=== PATIENT | female | born 1990 | race Caucasian/White ===

== ENCOUNTER 2024-07-25 12:21 | Outpatient (OUT) | payer OTHER, SELFPAY | END 2024-07-25 12:22 | disposition home or self-care (01) | LOC: PST 12:23 | PROVIDERS: PCP Family Medicine; Visit Provider Obstetrics & Gynecology | DX: Z01.818 Encounter for other preprocedural examination (principal) ==

== ENCOUNTER 2024-08-02 08:12 | Day surgery (SDC) | payer OTHER, SELFPAY ==
[2024-07-25 12:52] VITALS: BP 118/81; PULSE 82; TEMP 36.4; O2SAT 100; BMI 37.8
[2024-08-02] VITALS (12 sets, daily range): BP systolic 112–142; BP diastolic 70–95; PULSE 82–110; TEMP 36.2–36.3; O2SAT 90–100; BMI 38.1
[2024-08-02 08:21] LABS: Basophils Percent Auto 0.5 % (0.2-2.0); Eosinophils Absolute Auto 0.2 10^3/uL (0.0-0.7); Eosinophils Percent Auto 3.1 % (0.9-7.0); Hematocrit 41.5 % (36.0-48.0); Hemoglobin 14.3 g/dL (12.0-16.0); Immature Granulocytes Abs Auto 0.03 10^3/uL (0.00-0.03); Immature Granulocytes Pct Auto 0.5 % (0.0-0.5); Lymphocytes Absolute Auto 1.7 10^3/uL (1.2-3.8); Lymphocytes Percent Auto 26.1 % (20.5-60.0); Mean Corpuscular HGB Conc 34.5 g/dL (29.9-35.2); Mean Corpuscular Hemoglobin 28.8 pg (26.7-34.0); Mean Corpuscular Volume 83.7 fL (81.0-99.0); Mean Platelet Volume 10.1 fL (9.5-13.5); Monocytes Absolute Auto 0.5 10^3/uL (0.3-0.8); Monocytes Percent Auto 8.2 % (1.7-12.0); Neutrophils Percent Auto 61.6 % (43.0-75.0); Platelet Count 245 10^3/uL (150-450); Red Blood Count 4.96 10^6/uL (4.20-5.40); Red Cell Distribution Width 11.9 % (11.0-15.0); White Blood Count 6.5 10^3/uL (4.0-11.0)
[2024-08-02] MEDS: LACTATED RINGER'S SOLUTION 1,000 ML 50 ML IV ×2 (08:41→12:13)
[2024-08-02 09:10] LABS: HCG Quantitative <1 mIU/mL
--- NOTE | 2024-08-02 11:47 | P.ON_ITS ---
Brief Operative Note Date of procedure: 08/02/24 Pre-op diagnosis general: multiparity, desires permanent sterilization Post-op diagnosis: same as pre-op Procedure: NAME OF PROCEDURE: robotic assisted bilateral laparoscopic salpingectomy, lysis of omental adhesions from anterior abdominal wall, lt ovarian cystotomy PROCEDURE: The patient was taken back to the Operating Room where she was given general anesthesia without difficulty. She was then prepped and draped in the normal sterile fashion after being placed in a dorsal lithotomy position. A wet sponge stick was placed into the patient's vagina. Attention was then turned to the patient's abdomen, where a scalpel was used to make a small infraumbilical incision. The S retractors were then used to dissect the underlying layers until the fascia could be seen. The fascia was then grasped with Donovan clamps and tented up. A knife was then used to make a small incision to the fascia. The muscle was identified, at that time two sutures of #0 Vicryl on a GI needle was then used and placed through the fascia. the peritoneum was then identified and entered bluntly. The 10-4 Luc was then placed into the patient's abdomen. This was confirmed with direct visualization of the bowel, using the laparoscope. The patient's abdomen was then insufflated using approximately 4 liters of CO2 gas. Survey of the patient's abdomen demonstrated ovaries were normal in appearance as well as both tubes and uterus. A second and third rt and lt lateral robotic ports which were 8 mm in size, was then placed after the skin incision was made under direct visualization . the robotic arms were engaged. The patient's tube on the patient's right side was identified and tented up using a grasper, the ligasure apparatus was then used to come across the mesosalpingx from the fimbriated end to the insertion site at the uterus, the tube was then amputated and removed in its entirety. This was done on the contralateral side. The tubes were the removed from the patients abdomen. Excellent hemostasis was noted. The lateral ports were then moved under direct visualization with excellent hemostasis. All instruments were removed from the patient's abdomen. The fascia was closed using the #0 Vicryl on GI needle. The skin was closed using 4-0 Vicryl subcuticularly. All instruments were removed from the patient's vagina as well. The patient was taken out of the dorsal lithotomy position and placed in the supine position and taken to recovery in stable condition. Sponge, lap and needle counts were correct x2. please note left ovarian cystotomy and lysis of omental adhesions from anterior abdominal wall using the ligasure Surgeon: Josh Whelan Inspector Subassembly: Eugenie Fleming Estimated blood loss (mL): 5 Pathology: other (tubes) Condition: stable Disposition: PACU Urinary Catheter Management Urinary Catheter Management Urethral: Cath placed during this visit: no
--- NOTE | 2024-08-02 12:42 | PC.NURSE ---
(1230)O2 sat 88-92%. Lung sounds clear t/o a/p. O2 applied at 2l min via nc. PHARMACEUTICAL COMPOUNDING SUPERVISOR at bedside and aware.
== END 2024-08-02 14:00 | disposition home or self-care (01) ==
PROVIDERS: PCP Family Medicine; Visit Provider Obstetrics & Gynecology
PROC: (CPT 840; principal; 2024-08-02 09:30)
DX: Z30.2 Encounter for sterilization (principal)
CPT/HCPCS: 58661; 36415; 84702; 85025; 88302; J1100; J1885; J2250; J2405; J2704; J3010

== ENCOUNTER 2025-07-07 07:38 | Outpatient (OUT) | payer OTHER, SELFPAY ==
--- OUTSIDE RECORDS SUMMARY | 2025-07-06 10:45 | XMS_ITS ---
Author Organization [facility] in [place] Address [address] [place] [address] Care Team Providers Care Hydraulic Blocker Name Role Phone Mukesh Dolan Primary Care Provider Allergies No Known Allergies REASON FOR VISIT weight loss- wants to restart Adipex again- CSA signed, Had tubes taken out back in July and was taken off of control Medications Medication SIG (Take, Route, Frequency, Duration) Notes Start Date End Date Status Adipex-P 37.5 MG 1 tablet before breakfast Orall y Once a day; Duration: 30 5Active Social History Tobacco Use: Social History Observation Description Date Details (start date - stop date) Never Smoker NA - NA Tobacco Use/Smoking Question Answer Notes Patient is a nonsmoker Vital Signs Weight 191.6 lbs 07/06/2025 Height 60 in 07/06/2025 Blood pressure systolic 124 mm Hg 07/06/20 25 Blood pressure diastolic 84 mm Hg 025 BMI 37.42 kg/m2 07/06/2025 Encounters Encounter Location Date Provider Diagnosis [facility] [address] [place] [address] 07/06/2025 Mukesh Dolan Obesity E66.9 ; Well adolescent visit Z00.129 and Well adult Z00.00 Assessments Encounter Date Diagnosis (ICD Code) Assessment Notes Treatment Notes Treatment Clinical Notes Section Notes 07/06/2025 Obesity (ICD-10 - E66.9) 07/06/2025Well adolescent visit (ICD-10 - Z00.129)07/06/2025Well adult (ICD-10 - Z00.00) Plan Of Treatment Medication Medication Name Sig Start Date Stop Date Notes Adipex-P 37.5 MG 1 tablet before weston kfast Orally Once a day; Duration: 30 07/06/2025 Pending Test Test Name Order Date HEMOGLOBIN A1C (GLYCO) 07/06/2025 IRON, TOTAL 07/06/2025 LIPID PANEL (CHOL/TRIG/HDL/LDL) 07/06/20 25 Insulin Level 07/06/2025 FSH+LH+Prog+E2 07/06/2025 PROLACTIN 07/06/2025 TESTOSTERONE, TOTAL 07/06/2025 THYROID PANEL (T4/TSH/FREE T3) CMP (COMP MET FERRELL) w/eGFR CKD-EPI 2024 CBC WITH DIFF 07/06/2025 Progress Notes * Lizbeth HASTINGS RDOB: [birth year] (35 yo F)Acc No.[id number]:07/06/2025 UNLOCKED PROGRESS NOTE Progress Note Patient: Lizbeth TILLEY :?Luis Dolan ([facility]), MDDOB:1990???Age: 35 Y???Sex:FemaleDate:07/06/2025Phone:[phone]:[address], [id number] In:03:41 PM ESTCheck Out:04:10 PM EST Subjective: * Chief Complaints: * 1 . weight loss- wants to restart Adipex again- CSA signed. 2. Had tubes taken out back in July and was taken off of control. * ROS: ???EENT:?hearing changes?denies.?visual changes?denies. non-healing mouth sores?denies.?swollen glands or neck lumps?denies.?hoarseness?denies.?sore throat?denies.?difficulty swallowing?denies.?nose bleeds?denies.?nasal congestion?denies.?ear ache?denies.?ear discharge denies.?ringing in ears?denies.?light sensitivity?denies.?eye pain?denies.?blurring?denies.?eye irritation?denies.?double vision?denies. vision loss?denies.?General/Constitutional:?Sweats:?Denies.?Fatigue?denies.?Sleep proble ms?denies.?Anorexia?denies.?Malaise?denies.?Weight loss?denies. Fatigue or Weakness?denies.?Fever or Chills?denies.?Cardiovascular:?Shortness of Breath w/lying flat?denies.?Lightheadedne ss/dizziness?denies.?Chest tightness/ heavy pressure?denies.?Swelling of legs, a nkles, or feet?denies.?Waking up with shortness of breath?denies.?Chest pain&#16 0;denies.?Palpitations?denies.?Weight gain?denies.?Respiratory:?Chronic or frequent cough?denies.?Coughing up blood&#1 60;denies.?Difficulty breathing?denies.?Productive cough?denies.?Snoring&#1 60;denies.?Shortness of breath that awakens from sleep (PND)?denies.?Chest pain? denies.?Sputum production?denies.?Wheezing?denies.?Musculoskeletal:?Joint pain?denies.?Joint Fluid?denies.?Backpain?denies.?Knee pain?denies.?Neck pain?denies.?Joint Stiffness?denies.?Muscle cramps?denies.?Weakness of muscles?denies.?Arthritis?denies.?Muscle aches?denies.?Pain in shoulder(s)?denies.?Swollen joints?denies.? * Medical History: C ovid-19, Onychomycoses, Gastroenteritis, Sebaceous Cyst, Pelvic Pain, Near Syncope, Headache. * Surgical History: C Section X 2 , [place] Teeth Extraction , laparoscopic ovarian cystotomy dr ramirez 08/02/24. * Hospitalization/Major Diagno stic Procedure: D enies Past Hospitalization. * Family History: F ather: unknown. M other: alive, epilepsy. B rother(s): alive. D susannah(s): alive. 1 brother(s) - healthy. 2 daughter(s) - healthy. . * Social History: ???Tobacco Use:?Tobacco Use/Smoking?Patient is a?nonsmoker * Medications: T aking Adipex-P(Phentermine HCl) 37.5 MG Tablet 1 tablet before breakfast Orally Once a day , Medication List reviewed and reconciled with the patient * Allergies: N .K.D.A. Objective: * Vitals: W t:191.6lbs, Ht: 60 in, BP:124/84mm Hg, BMI:37.42Index, Ht-cm: 152.4 cm, Wt-k.91 kg. * Examination: ???Physical Exam: ?GENERAL:?well developed, well nourished, in no acute distress.?HEAD:?normocephalic/atraumatic.?EYES:?pupils equal, round and reactive to light, conjunctivae and sclerae normal.?EARS:?no deformity or lesion of external ear, canals and TM appear normal bilaterally, TM's intact, not inflamed with normal light reflex, hearing grossly normal to conversational speech.?NOSE:?no deformity, discharge, inflammation, or lesions. ?MOUTH:?mucous membranes moist, normal oropharynx and posterior pharynx without lesions or exudates, tongue normal, dentition normal.?NECK:?neck supple, no masses or palpable cervical nodes, trachea midline, thyroid without nodules, masses, tenderness, or enlargement.?CHEST:?no chest wall deformity, no chest wall tenderness. ?LUNGS:?normal respiratory effort and clear to auscultation, no wheezes, rales, or rhonchi, good air exchange.?CARDIO:?regular rate and rhythm, normal S1 and S2, nor murmur, rub, or gallop.?PULSES:?normal capillary refill.?ABDOMEN:?soft, non-distended, non-tender, no masses.?MUSCULOSKELETAL:?no deformity or scoliosis noted, normal range of motion, joints normal, no erythema, edema, effusion, or ecchymosis.?EXTREMITY:?no clubbing, cyanosis, edema, or deformity withnormal ROM in both upper and lower bilateral extremities.?NEUROLOGIC:?grossly normal.?SKIN:?no rashes, ulcerations, or suspicious lesions.?LYMPH NODES:?no cervical adenopathy, nodes normal.?MENTAL STATUS:?alert and oriented x3, normal mood and affect.? Assessment: * Assessment: 1.?Obesity - E66.9 (Primary)???2.?Well adolescent visit - Z00.129? ?3.?Well adult - Z00.00??? Plan: * Treatment: Refill Adipex-P Tablet, 37.5 MG, 1 tablet before breakfast, Orally, Once a day, 30, 30 Tablet, Refills 0.?LAB: FSH+LH+Prog+E2 ?LAB: PROLACTIN ?LAB: TESTOSTERONE, TOTAL2.?Well adult?LAB: HEMOGLOBIN A1C (GLYCO) ?LAB: IRON, TOTAL ?LAB: LIPID PANEL (CHOL/TRIG/HDL/LDL) ?LAB: Insulin Level ?LAB: THYROID PANEL (T4/TSH/FREE T3) ?LAB: CMP (COMP MET FERRELL) w/eGFR CKD-EPI ?LAB: CBC WITH DIFF * Preventive Medicine: ??Screenings/Counseling:?BMI ACTION PLAN?Above Normal BMI Follow-up?Dietary management education, guidance, and counseling * * Electronic signature of Mukesh Dolan MD, [phone] on 07/07/2025 at 07:40 AM EST Sign off status: PendingVisit Status:?CHK (Check Out) * [facility] Date: 09/05/2024 Generated for Printing/Faxing/eTransmitting on:?07/07/2025 07:40 AM EST History and Physical Notes * Examination CategorySub-CategoryDetailNotesCategory NotesPhysical ExamGENERAL:well developed, well nourished, in no acute distressHEAD:normocephalic/atraumatic EYES:pupils equal, round and reactive to light, conjunctivae and sclerae normal EARS:no deformity or lesion of external ear, canals and TM appear normal bilaterally, TM's intact, not inflamed with normal light reflex, hearing grossly normal to conversational speechNOSE:no deformity, discharge, inflammation, or lesionsMOUTH:mucous membranes moist, normal oropharynx and posterior pharynx without lesions or exudates, tonguenormal, dentition normalNECK:neck supple, no masses or palpable cervical nodes, trachea midline, thyroid without nodules, masses, tenderness, or enlargementCHEST:no chest wall deformity, no chest wall tendernessLUNGS:normal respiratory effort and clear to auscultation, no wheezes, rales, or rhonchi, good air exchangeCARDIO:regular rate and rhythm, normal S1 and S2, nor murmur, rub, or gallopPULSES:normal capillary refillABDOMEN:soft, non-distended, non-tender, no massesRECTAL:MUSCULOSKELETAL:no deformity or scoliosis noted, normal range of motion, joints normal, no erythema, edema, effusion, or ecchymosisEXTREMITY:no clubbing, cyanosis, edema, or deformity with normal ROM in both upper and lower bilateral extremitiesNEUROLOGIC:grossly normalSKIN:no rashes, ulcerations, or suspicious lesionsLYMPH NODES:no cervical adenopathy, nodes normalMENTAL STATUS:alert and oriented x3, normal mood and affect
--- OUTSIDE RECORDS SUMMARY | 2025-07-06 16:28 | XMS_ITS | Encounter Summary ---
Author Organization [facility] Address [address] [facility] [address] Care Team Providers Care Engineering Designer Name Role Phone Luis Dolan MD Primary Care Provider [phone] Encounter Details DateTypeDepartmentCare Team (Latest Contact Info)Fxbweljxoqf74/12/2025Telephone [facility]YT[facility] [address] [place] [address] [place] [phone] Alesia Beth MA Social History Tobacco UseTypesPacks/DayYears UsedDateSmoking Tobacco: NeverSmokeless Tobacco: NeverAlcohol UseStandard Drinks/WeekCommentsNot Currently0 (1 standard drink = 0.6 oz pure alcohol)CommentsNoSex and Gender InformationValueDate RecordedSex Assigned at FsahvAcyoks35/29/2023 12:33 PM EDTLegal SexFemale 10/29/2022 11:47 PM EDTGender AmduwksdSetyff94/29/2023 12:33 PM EDTSexual OrientationNot on filedocumented as of this encounter Miscellaneous Notes * Telephone Encounter - Alesia Beth MA - 06/28/2025 11:14 AM EST Pt called in complaining of possible BV Infection. Pt requesting medication be sent to pharmacy. Pharmacy confirmed and med sent. * Telephone Encounter - Alesia Beth MA - 06/28/2025 10:50 AM EST Pt left VM but recording is inaudible. LMVM for pt to return call documented in this encounter Plan of Treatment Not on file documented as of this encounter Visit Diagnoses Diagnosis BV (bacterial vaginosis) Unspecified vaginitis and vulvovaginitis documented in this encounter Care Teams Team MemberRelationshipSpecialtyStart DateEnd Date Luis Dolan MD [address] [place] [phone] PCP - [facility]01/12/23documented as of this encounter
--- OUTSIDE RECORDS SUMMARY | 2025-07-06 16:28 | XMS_ITS | Clinical Summary ---
Author Organization [facility] Address [address] [place] [address] Care Team Providers Care Tire Building Supervisor Name Role Phone Luis Dolan MD Primary Care Provider [phone] Allergies Active AllergyReactionsCriticalityNoted DateCommentsGrass Pollen(K-O-R-T-Swt Remigio)Itching,Rash,WqzswgmrDle31/31/2023OtherItching,Swelling,Dmdfixe9906/19/2023 Steri Strips Medications MedicationSigDispense QuantityRefillsLast FilledStart DateEnd DateStatus metroNIDAZOLE (Flagyl) 500 MG tablet Indications:BV (bacterial vaginosis)Take 1 tablet (500 mg) by mouth in the morning and 1 tablet (500 mg) before bedtime. Do all this for 7 days. Do not drink alcohol while taking this medication. 14 tablet 5109/04/2024ExpiredHospital, Clinic, or Other Facility Administered MedicationOrdered DoseRouteFrequencyStart DateEnd DateStatus medroxyPROGESTERone (Depo-Provera) injection 150 mg Indications:Encounter for management and injection of depo-Dfzunqg475 mgIMOnce 4Active Active Problems ProblemNoted DateDiagnosed DatePostoperative state08/15/2024re-op examination 4Request for gcumdyvhbifsb60/18/2024 Encounters DateTypeDepartmentCare ExwuZhknlkgtzfn15/12/2025Telephone [facility] [address] [phone] Alesia Beth MA from Last 3 Months Family History Medical HistoryRelationNameCommentsSeizuresMotherKim TayoRelationNameStatus CommentsMotherKim Tayo Social History Tobacco UseTypesPacks/DayYears UsedDateSmoking Tobacco: NeverSmokeless Tobacco: Never Tobacco Cessation:Counseling Given: Not Answered Alcohol UseStandard Drinks/WeekCommentsNot Currently0 (1 standard drink = 0.6 oz pure alcohol)CommentsNoSex and Gender InformationValueDate RecordedSex Assigned at LhxrpJyulor96/29/2023 12:33 PM EDTLegal CnuCxcvsq03/15/2023 11:47 PM EDTGender DvcyzkikDemzet76/29/2023 12:33 PM EDTSexual OrientationNot on file Last Filed Vital Signs Vital SignReadingTime TakenCommentsBlood Iaiowmdb936/7207/04/2024 11:50 AM EST Pulse--Temperature--Respiratory Rate--Oxygen Saturation--Inhaled Oxygen Concentration--Qffgml66.1 kg (192 lb)07/04/2024 11:50 AM QVUVbostk945.4 cm (5') 06/13/2024 3:31 PM EDTBody Mass Index37. 3:31 PM EDT Plan of Treatment Not on file Insurance Care Teams Team MemberRelationshipSpecialtyStart DateEnd Date Luis Dolan MD [address] [place] [phone] PCP - General01/12/23
--- OUTSIDE RECORDS SUMMARY | 2025-07-06 16:28 | XMS_ITS | Patient Health Record ---
Author Organization [facility] in [place] Address [address] [place] [address] Care Team Providers Care Telemarketing Sales Representative Name Role Phone Mukesh Dolan Primary Care Provider Allergies No Known Allergies Results Component Value Reference Range Notes PREG QUANT HCG Reviewed date:08/02/2024 12:16:50 PM Interpretation: Performing Lab: Notes/Report: [facility] , HCG Quantitative <1 5-50 0.2-1 WEEK 50-500 1-2 WEEKS 100-5,000 2-3 WEEKS 500-10,000 3-4 WEEKS 1,000-50,000 4-5 WEEKS 10,000-100,000 5-6 WEEKS 15,000-200,000 6-8 WEEKS 10,000-100,000 2-3 MONTHS Performing Lab:see noteML - [facility] LBCBC AUTO DIFF Reviewed date:08/02/2024 12:16:50 PM Interpretation: Performing Lab: Notes/Report: [facility] ,White Blood Count6.54.0-11.0 10 3/uLRed Blood Count4.964.20-5.40 10 6/uL Nfflvwjnbm14.312.0-16.0 g/vQQoivhuplpm59.536.0-48.0 %Mean Corpuscular Ivlpmx54.7 81.0-99.0 fLMean Corpuscular Zucoltwzti39.826.7-34.0 pgMean Corpuscular HGB Conc 34.529.9-35.2 g/dLRed Cell Distribution Width11.911.0-15.0 %Platelet Vwrse078 150-450 10 3/uLMean Platelet Nyvmpt42.19.5-13.5 fLNeutrophils Percent Auto61.6 43.0-75.0 %Lymphocytes Percent Auto26.120.5-60.0 %Monocytes Percent Auto8.21.7- 12.0 %Eosinophils Percent Auto3.10.9-7.0 %Basophils Percent Auto0.50.2-2.0 % Immature Granulocytes Pct Auto0.50.0-0.5 %Neutrophils Absolute Auto4.01.4-6.5 10 3/uLLymphocytes Absolute Auto1.71.2-3.8 10 3/uLMonocytes Absolute Auto0.50.3-0.8 10 3/uLEosinophils Absolute Auto0.20.0-0.7 10 3/uLBasophils Absolute Auto0.00.0- 0.1 10 3/uLImmature Granulocytes Abs Auto0.030.00-0.03 10 3/uLPerforming Lab:see noteML - [facility] Reason For Referral No Information Medications Medication SIG (Take, Route, Frequency, Duration) Notes Start Date End Date Status Adipex-P 37.5 MG 1 tablet before breakfast Orall y Once a day; Duration: 30 5Active Social History Tobacco Use: Social History Observation Description Date Details (start date - stop date) Never Smoker NA - NA Tobacco Use/Smoking Question Answer Notes Patient is a nonsmoker Alcohol Screen (Audit-C) Question Answer Notes Did you have a drink containing alcohol in the p ast year? No Mlemjs5QkskzsjqfrdhpiMsqbxwxn Problems Problem Type SNOMED Code ICD Code Onset Dates Problem Status W/U Status Risk Notes Problem Onychomycosis (863320488) Onychomycosis ( B35.1) ActiveconfirmedProblemObesity (226209569)Obesity (E66.9)ActiveconfirmedProblem Well adult (337851505)Well adult (Z00.00)ActiveconfirmedProblemNear syncope (988436749)Near syncope (R55)Activeconfirmed Vital Signs Blood pressure diastolic 84 mm Hg 07/06/2025 Zsxfty82 in07/06/2025lood pressure rmqsgwpy311 mm Hg07/06/20252274Fmgebg050.6 lbs 11/20/3568LOO87.42 kg/m207/06/2025 Encounters Encounter Location Date Provider Diagnosis [facility] [address] [place] [address] 07/06/2025 Mukesh Dolan Obesity E66.9 ; Well adolescent visit Z00.129 and Well adult Z00.00 Assessments Encounter Date Diagnosis (ICD Code) Assessment Notes Treatment Notes Treatment Clinical Notes Section Notes 07/06/2025 Obesity (ICD-10 - E66.9) 07/06/2025Well adolescent visit (ICD-10 - Z00.129)07/06/2025Well adult (ICD-10 - Z00.00) Plan Of Treatment Pending Test Test Name Order Date HEMOGLOBIN A1C (GLYCO) 07/06/2025 IRON, TOTAL 07/06/2025 LIPID PANEL (CHOL/TRIG/HDL/LDL) 07/06/20 25 Insulin Level 07/06/2025 FSH+LH+Prog+E2 07/06/2025 PROLACTIN 07/06/2025 TESTOSTERONE, TOTAL 07/06/2025 THYROID PANEL (T4/TSH/FREE T3) CMP (COMP MET FERRELL) w/eGFR CKD-EPI 2024 CBC WITH DIFF 07/06/2025 Insurance Providers Payer Name Payer Address Payer Phone Subscriber Number Group Number Insured Name Patient Relationship to Insured Coverage Start Date Coverage End Date R [address] [address] [place] [address] [id number] Ritesh Hastings Spouse - patient is the spouse of the insured Medical (General) History Medical History History ICD Code Covid-19 OnychomycosesGastroenteritisSebaceous CystPelvic PainNear SyncopeHeadache Surgical History Surgery Date(Month/Year) laparoscopic ovarian cystotomy dr ramirez 08/02/24 [place] Teeth Extraction C Section X 2
--- OUTSIDE RECORDS SUMMARY | 2025-07-07 07:40 | XMS_ITS | CCD ---
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 Name Role Phone JUDAH WHELAN Attending Unavailable JUDAH WHELAN Consulting Unavailable JUDAH WHELAN Admitting Unavailable Luis Dolan MD Primary Care Provider [phone] Luis Dolan MD Primary Care Provider [phone] DEYSI ANDREW Attending Unavailable JUDAH WHELAN Attending Unavailable JUDAH WHELAN Attending Unavailable DEYSI ANDREW Attending Unavailable Allergies Allergy ClassificationReported Allergen(s)Allergy TypeDate of OnsetReaction(s) Facility (12 sources)Grass pollenPropensity to adverse gjienumsh85-32-9413Zcxocjc, Rash, SwellingNOMS Healthcare (12 sources)OtherPropensity to adverse hvehyjrpw01-53-8752Swzwahn, Swelling, UnknownNOMS Healthcare Work Phone: Medications Current Medications MedicationDrug Class(es)DatesSig (Normalized)Sig (Original)metroNIDAZOLE 0.0075 mg/mg vaginal gel (3 sources)Nitroimidazole AntimicrobialStart: 03-16-2025 End: 02-48-9242rbzujNTSKBSJP (Metrogel) 0.75 % vaginal gel Indications: Vaginal discharge Insert into the vagina Daily for 5 days 70 g 03/16/2025 03/21/2025 Active Completed/Discontinued Medications MedicationDrug Class(es)DatesSig (Normalized)Sig (Original)1 ml medroxyPROGESTERone acetate 150 mg/ml prefilled syringe (19 sources)ProgestinStart: 05-18-2024 End: 89-10-1348cjozchqHHYPJKOLMhlt (Depo-Provera) 150 MG/ML suspension prefilled syringe injection syringe Indications: Encounter for management and injection of depo-Provera Inject 1 mL (150 mg) into the shoulder,thigh, or buttocks every 3 (three) months 1 mL 2 05/18/2024 08/12/2024 Discontinued (Therapy completed) Start: 23-69-7976feadmnaSBNIXUUZGkkp (Depo-Provera) injection 150 mg Problems Active Problems Problem ClassificationProblemDateDocumented DateEpisodic/ChronicAbdominal pain (2 sources)Pain in female pelvis; Translations: [Pelvic and perineal pain] 95-37-3942GtxzpzwtXuxtkqutbbsxd and screening for infectious disease (3 sources)Encounter for screening for human papillomavirus (HPV); Translations: [Exposure to sexually transmissible disorder]Onset: 143414-70-9684Ibvsmosx Other female genital disorders (2 sources)Vaginal discharge; Translations: [Other specified noninflammatory disorders of vagina]01-84-8492DlrulrzfMacus screening for suspected conditions (not mental disorders or infectious disease) (4 sources)Encounter for screening for malignant neoplasm of cervix; Translations: [ENC SCREENING MALIG NEOPLASM CERV]Onset: 75-11-5528Onjbbmea Past or Other Problems Problem ClassificationProblemDateDocumented DateEpisodic/ChronicContraceptive and procreative management (14 sources)Sterilization requested; Translations: [Encounter for sterilization] Onset: 042697-17-9119IcpwbjsgFsyxckal codes; unclassified (8 sources)Postoperative state; Translations: [Other specified postprocedural states]Onset: 961688-07-7250Rczcfock Results Test NameValueInterpretationReference RangeFacilityRECURRENT VAGINITIS (HTRX)on 17-32-5801KVSIQVKBI RFYOXID9ZGEN HealthcareATOPOBIUM VAGINAENot detectedNOMS HealthcareBVAB 2,3 (BACTERIAL VAGINOSIS ASSOCIATED BACTERIA 2, 3); MOBILUNCUS HPE0OCJD HealthcareBVAB 2,3 (BACTERIAL VAGINOSIS ASSOCIATED BACTERIA 2, 3); MOBILUNCUS SPPNot detectedNOMS HealthcareCANDIDA ALBICANS, PARAPSILOSIS, BRMMKPNLSD2MTSE HealthcareCANDIDA ALBICANS, PARAPSILOSIS, TROPICALISNot detected NOMS HealthcareCANDIDA DVCQOXTU5XFQT HealthcareCANDIDA GLABRATANot detectedNOMS HealthcareCANDIDA DPIOBY3KOFS HealthcareCANDIDA KRUSEINot detectedNOMS HealthcareCHLAMYDIA NIKWUCIHKBZ0ILGJ HealthcareCHLAMYDIA TRACHOMATISNot detected NOMS HealthcareGARDNERELLA USYRYNJXH1UECR HealthcareGARDNERELLA VAGINALISNot detectedNOMS HealthcareMEGASPHAERA (TYPES 1, 2)0NOMS HealthcareMEGASPHAERA (TYPES 1, 2)Not detectedNOMS HealthcareMYCOPLASMA GKMUDXJXGB1RWLX Healthcare MYCOPLASMA GENITALIUMNot detectedNOMS HealthcareNEISSERIA ZYABJZSRKXZ9ESQF HealthcareNEISSERIA GONORRHOEAENot detectedNOMS HealthcareTRICHOMONAS VAGINALIS0 NOMS HealthcareTRICHOMONAS VAGINALISNot detectedNOMS HealthcareNOMS Healthcare ALL CBC WITH AUTO DIFFon 96-60-7054KGNEIPZXU ABSOLUTE BTCQ7PPBM Healthcare Basophils/100 WBC (Bld)0.5 %0.2 - 2.0 %NOMS HealthcareEosinophils/100 WBC (Bld) 3.1 %0.9 - 7.0 %NOMS HealthcareErythrocyte distribution width (RBC) [Ratio]11.9 %11.0 - 15.0 %NOMS HealthcareHematocrit (Bld) [Volume fraction]41.5 %36.0 - 48.0 %NOM HealthcareHemoglobin (Bld) [Mass/Vol]14.3 g/dL12.0 - 16.0 g/dLNOWI HealthcareIMMATURE GRANULOCYTES ABS AUTO0.03NOMS HealthcareImmature granulocytes/100 WBC (Bld)0.5 %0.0 - 0.5 %NOM HealthcareLYMPHOCYTES ABSOLUTE AUTO1.7NOMS HealthcareLymphocytes/100 WBC (Bld)26.1 %20.5 - 60.0 %Christian HospitalMCH (RBC) [Entitic mass]28.8 pg26.7 - 34.0 pgNOGolden Valley Memorial HospitalMCHC (RBC) [Mass/Vol]34.5 g/dL29.9 - 35.2 g/dLNOGolden Valley Memorial HospitalMCV (RBC) [Entitic vol]83.7 fL 81.0 - 99.0 fLNOWI HealthcareMONOCYTES ABSOLUTE AUTO0.5[facility] Monocytes/100 WBC (Bld)8.2 %1.7 - 12.0 %NOMS HealthcareNEUTROPHILS ABSOLUTE AUTO 4NOMS HealthcareNeutrophils/100 WBC (Bld)61.6 %43.0 - 75.0 %[facility] Platelet mean volume (Bld) [Entitic vol]10.1 fL9.5 - 13.5 fLNOMS [facility] HospitalTBH EO #0.2NOMS HealthcareTBH FQO787XSYE [facility] HospitalTBH RBC4.96NOMS [facility] HospitalTBH WBC 6.5NOMS HealthcareCLINISYNCNOMS HealthcarePAP ACOG PANEL 2: 30 to 65on 34-25-2758Ccf Gdln ACOG Gnpzqak65-79WhqqvbKbwMansfield HospitalComment on above: Performed By: #### [id number] #### [facility] [address] [place] [address] Lexie KarenDIAGNOSIS:CommentKettering Health Washington Township on above:Result Comment: NEGATIVE FOR INTRAEPITHELIAL LESION OR MALIGNANCY. Performed at: WBPerformed By: #### [id number] #### [facility] [address] [place] [address] Lexie KarenHPV AptimaNegativeNormalNegativeThe [facility] Methodist HospitalComment on above:Result Comment: This nucleic acid amplification test detects fourteen high-risk HPV types (16,18,31,33,35,39,45,51,52,56,58,59,66,68) without differentiation. Performed at: =GPerformed By: #### [id number] #### [facility] [address] [place] [address] Lexie KarenMethodology:CommentKettering Health Washington Township on above: Result Comment: This liquid based ThinPrep(R) pap test was screened with the use of an image guided system. Performed at: WBPerformed By: #### [id number] #### [facility] [address] [place] [address] Lexie KarenNote:CommentKettering Health Washington Township on above:Result Comment: The Pap smear is a screening test designed to aid in the detection of premalignant and malignant conditions of the uterine cervix. It is not a diagnostic procedure and should not be used as the sole means of detecting cervical cancer. Both false-positive and false-negative reports do occur. . Performed at: WBPerformed By: #### [id number] #### [facility] [address] [address] Lexie ChasePerformed by:CommentKettering Health Washington Township on above: Result Comment: Radha Gasca, Potato Chip Cooker Machine (ASCP) Performed at: WBPerformed By: #### [id number] #### [facility] [address] [id number] Lexie EdienSpecimen adequacy:CommentPremier Health Miami Valley Hospital NorthComuniversity of michigan health–west on above:Result Comment: Satisfactory for evaluation. Endocervical and/or squamous metaplastic cells (endocervical component) are present. Performed at: WBPerformed By: #### [id number] #### [facility] [address] [address] Lexie Chase..NormalThe [facility] Methodist HospitalComment on above:Result Comment: Performed at: WBPerformed By: #### [id number] #### [facility] [address] [id number] Lexie Chase Vital Signs Date TimeVital SignValuePerforming PpjoixgxoJzibhgvv07-21-1907 11:50-0500Body mass index (BMI) [Ratio]37.5 kg/u1Drbne Cleopatra DO Work Phone: [facility] HospitalYcztgwhize62-30-1353 11:50-0500Body .09 kgCorey Cleopatra DO Work Phone: [facility] HospitalEarfzjlyip73-97-9489 11:50-0500Diastolic blood mmfqvsti08 mm[Hg]Judah Cleopatra DO Work Phone: [phone] [place] [address]Pdmkptefzv98-09-1564 11:50-0500Systolic blood cfhekjkl203 mm[Hg]Judah Cleopatra DO Work Phone: [facility] HospitalTmrmmmpyef88-35-3074 15:31-0400Body akktgn383.4 cmCorey Cleopatra DO Work Phone: [facility] HospitalVoyintnxrf76-11-3703 15:31-0400Body mass index (BMI) [Ratio]37.3 kg/a0Weqgo Cleopatra DO Work Phone: NO Qugiufqszk60-03-0371 15:31-0400Body ojchxd63.64 kgCorey Cleopatra DO Work Phone: NO Arjyqzswsh37-44-0550 15:31-0400Diastolic blood jigppdyy02 mm[Hg]Judah Cleopatra DO Work Phone: NO Notokbgdud78-95-2000 15:310400Systolic blood bnkuzhgt183 mm[Hg]Judah Cleopatra DO Work Phone: [facility] Encounters Encounter DateEncounter TypeCare ProviderFacilityStart: 03-16-2025 End: 50-17-4382Cgqsuz flowsIshan MAR Work Phone: [facility] Jos OBGYNStart: 03-16-2025 End: 76-50-9821Wfeyak flowsIshan MAR Work Phone: [facility] [place] OBGYNStart: 03-16-2025 End: 32-42-0992Tnbhzopw Result EncounterDeysi MAR Work Phone: [facility] External Department UnsolicitedStart: 03-16-2025 End: 61-10-2120Ytsjcn outpatient visit 15 minutesDeysi MAR Work Phone: [facility] Jos OBGYNComment on above:Vaginal discharge; STD exposure; Pelvic pain in femaleStart: 03-16-2025 End: 30-00-2081ihlfdwsgdcHJH RAMEYNot AvailableStart: 08-15-2024 End: 68-57-9738Atwvfg flowsIshan MAR Work Phone: [facility] BCP OBStart: 08-15-2024 End: 16-10-0220Ojixkp flowsIshan MAR Work Phone: [facility] BCP OBStart: 08-15-2024 End: 82-34-5243Pctflk follow up visit related to original pxDeysi MAR Work Phone: [facility] BCP OBComment on above:Postoperative stateStart: 08-15-2024 End: 46-63-6526ymhnyelrauIYE RAMEYNot AvailableStart: 08-02-2024 End: 81-52-3576Skzpguhzn Result EncounterCorey Cleopatra DO Work Phone: noms External Department UnsolicitedStart: 08-02-2024 End: 44-81-8734Ohfhhwdme Result EncounterCorey Cleopatra DO Work Phone: noms External Department UnsolicitedStart: 07-04-2024 End: 49-74-7830Tzgepz outpatient visit 15 minutesCorey Cleopatra DO Work Phone: noms BCP OBComment on above:Pre-op examination; Request for sterilizationStart: 07-04-2024 End: 66-67-1840Xlntzypychzee examination doneCorey Cleopatra DO Work Phone: noms HealthcareStart: 07-04-2024 End: 41-65-1882rfwravcezgCZPNO FAZIONot AvailableStart: 06-13-2024 End: 95-09-5344Ouifja outpatient visit 15 minutesCorey Cleopatra DO Work Phone: noms BCP OBComment on above:Sterilization consult Start: 06-13-2024 End: 83-96-6643vbenktcvpxSPMKJ FAZIONot AvailableStart: 06-13-2024 End: 55-11-5722Lbgrai flowsheetCorey Cleopatra DO Work Phone: [facility] BCP OBStart: 06-13-2024 End: 16-95-9012Uhfody flowsheetCorey Cleopatra DO Work Phone: noms BCP OBStart: 05-20-2024 End: 11-78-0710tglorjjuqtTJA RAMEYNot AvailableStart: 10-03-2020 End: 36-91-9138Hixuwwf encounter procedureCOREY FAZIOFacility:H1 Procedures DateProcedureProcedure DetailPerforming ClinicianStart: 92-83-4180WFPSIGMHY VAGINITIS (HTRX)Deysi MAR Work Phone: Start: 73-24-3717KFZ CBC WITH AUTO DIFFCorey Cleopatra DO Work Phone: Plan of Treatment DateCare ActivityDetailAuthorStart: 03-16-2025 End: 29-23-8866VG PelvisUS Pelvis w/ TV Imaging Routine Pelvic pain in female Expected: 03/16/2025, Expires: 09/16/2025[facility] Work Phone: comment on above:Expected: 03/16/2025, Expires: 09/16/2025Start: 03-16-2025 End: 94-15-1776Gwsjpqv encounter niwcictys32/31/2025 8:50 AM EDT Office Visit [facility] [address] [place] [address] Deysi Andrew, PA [address] [place], [place] [id number] ArrivedREECE Argu[place] OBGYNComment on above:ArrivedStart: 08-15-2024 End: 77-37-3240Snpgudr encounter gnvzoeolo71/30/2024 1:50 PM EST Office Visit [facility] [address] [place] [address] Deysi Andrew, PA [address] [place], [place] [id number] ArrivedREECE BCP OBComment on above:ArrivedStart: 08-05-2024 End: 82-84-1671Hxkjxvkx Oywllyq6708/05/2024 9:10 AM EST Clinical Support [facility] [address] [place] [address] [facility] Start: 06-13-2024 End: 23-63-8711Tmkypti encounter prdzsotdr10/28/2024 3:20 PM EDT Office Visit [facility] [address] [place] [address] Judah Whelan, DO [address] [place] [address] ArrivedBEAR [facility] OBComment on above:ArrivedCHLAMYDIA TRACHOMATIS (GENITO/STI)CHLAMYDIA TRACHOMATIS (GENITO/STI) Lab Routine STD exposure Ordered: 03/16/2025[facility] HealthcareComment on above:Ordered: 03/16/2025 Neisseria gonorrhoeae DNA [Presence] in Unspecified specimen by ROLANDA with probe detectionNeisseria gonorrhea DNA probe, direct Lab Routine STD exposure Ordered: 03/16/2025[facility] HealthcareComment on above:Ordered: 03/16/2025SURESWAB(R) ADVANCED VAGINITIS PLUS, TMASURESWAB(R) ADVANCED VAGINITIS PLUS, TMA Pathology and Cytology Routine Vaginal discharge Ordered: 03/16/2025[facility] Work Phone: comment on above:Ordered: 03/16/2025 Payers DatePayer CategoryPayerPolicy [id number] Health InsuranceUNITED HEALTHCARE [id number] 2..[id number] 2..[id number] 2..[id number] 2..[id number] [id number] [id number] Social History DateTypeDetailFacilityTobacco smoking status NHISTobacco smoking consumption unknownNOMS HealthcareStart: 60-08-8066Cex assigned at birthFemalPrimary Children's Hospital HealthcareStart: 81-10-3797Tubovw identityIdentifies as female gender (finding) [facility] HealthcareStart: 16-96-8839Brpeqs orientationNot on fileNOMS Healthcare Start: 12-24-8353Hqjahln smoking status NHISNever smoked tobaccoN[facility]S Healthcare Start: 56-95-4459Goqmhmb use and exposureSmokeless tobacco non-userNOWI HealthcareStart: 07-04-2024 End: 96-33-2816Jnlsqrzeb beverage intakeEx-drinker (finding)[facility] Start: 50-07-7077Nricfkh of Social functionNOWI Healthcare History of Present illness Narrative 03-16-2025 Note Date & EfogCyilJwuqjleg87-16-8285 History of Present illness Narrative* ZAID Felipe - 03/16/2025 8:50 AM EDT Reason for Appointment: Patient ID: Lizbeth Hastings is a 35 y.o. female who presents for Vaginal Discharge and STI Screening Patient presents today for Acute Visit. MEDICATIONS Current Outpatient Medications Medication Instructions metroNIDAZOLE (Metrogel) 0.75 % vaginal gel Vaginal, Daily ALLERGIES Allergies Allergen Reactions Other Itching, Swelling and Unknown Steri Strips Grass Pollen(K-O-R-T-Swt Remigio) Itching, Rash and Swelling PROBLEMS Active Ambulatory Problems Diagnosis Date Noted Pre-op examination 07/04/2024 Request for sterilization 07/04/2024 Postoperative state 08/15/2024 Resolved Ambulatory Problems Diagnosis Date Noted No Resolved Ambulatory Problems Past Medical History: Diagnosis Date Arthritis Multiple evanescent white dot syndrome (mewds), bilateral Ovarian cyst HISTORY PAST MEDICAL HISTORY SOCIAL HISTORY Past Medical History: Diagnosis Date Arthritis Multiple evanescent white dot syndrome (mewds), bilateral Ovarian cyst Social History Tobacco Use Smoking status: Never Smokeless tobacco: Never Substance Use Topics Alcohol use: Not Currently Drug use: Never FAMILY HISTORY Family History Problem Relation Name Age of Onset Seizures Mother Kate Cr SURGICAL HISTORY Past Surgical History: Procedure Laterality Date SECTION, CLASSIC SECTION, LOW TRANSVERSE 01/19/2008 and 03/08/2010 TUBAL LIGATION Bilateral 08/02/2024 WISDOM TOOTH EXTRACTION REVIEW OF SYSTEMS Review of Systems: Review of Systems Constitutional: Negative. HENT: Negative. Eyes: Negative. Respiratory: Negative. Cardiovascular: Negative. Gastrointestinal: Negative. Genitourinary: Negative. Musculoskeletal: Negative. Skin: Negative. Neurological: Negative. All other systems reviewed and are negative. Hematological: Negative. Endocrine: Negative. Allergic/Immunologic: Negative. OBJECTIVE Objective: Physical Exam Constitutional: Appearance: Normal appearance. She is normal weight. HENT: Head: Normocephalic. Cardiovascular: Rate and Rhythm: Normal rate. Pulses: Normal pulses. Pulmonary: Effort: Pulmonary effort is normal. Breath sounds: Normal breath sounds. Abdominal: Palpations: Abdomen is soft. Musculoskeletal: General: Normal range of motion. Neurological: General: No focal deficit present. Mental Status: She is alert and oriented to person, place, and time. Psychiatric: Mood and Affect: Mood normal. Behavior: Behavior normal. Thought Content: Thought content normal. Judgment: Judgment normal. Vitals and nursing note reviewed. Vitals: Estimated body mass index is 37.5 kg/m as calculated from the following: Height as of 06/13/24: 5'. Weight as of 07/04/24: 192 lb. BP: No LMP recorded. ASSESSMENT & PLAN ICD-10-CM 1. Vaginal discharge N89.8 SURESWAB(R) ADVANCED VAGINITIS PLUS, TMA metroNIDAZOLE (Metrogel) 0.75 % vaginal gel 2. STD exposure Z20.2 CHLAMYDIA TRACHOMATIS (GENITO/STI) Neisseria gonorrhea DNA probe, direct 3. Pelvic pain in female R10.2 US Pelvis w/ TV Patient presents for vaginal cultures. Recently stopped depo after several years. States now havingperiods and occasionally noticing odors. She was prescribed a week of diflucan and states still feel like she can smell the odor. Cultures obtained today. We will send in script for metro gel and follow up as needed Documented by ZAID Felipe on behalf of: ZAID Felipe documented in this [facility]UT[facility] History of Present illness Narrative 08-15-2024 Note Date & KuwkYzyeBbbnajhb93-28-0512 History of Present illness Narrative* ZAID Felipe - 08/15/2024 1:50 PM EST Reason for Appointment: Patient ID: Lizbeth Hastings is a 34 y.o. female who presents for No chief complaint on file. Patient presents today for 2 Week Post Op Follow Up appointment. MEDICATIONS No current outpatient medications ALLERGIES Allergies Allergen Reactions Other Itching, Swelling and Unknown Steri Strips Grass Pollen(K-O-R-T-Swt Remigio) Itching, Rash and Swelling PROBLEMS Active Ambulatory Problems Diagnosis Date Noted Pre-op examination 07/04/2024 Request for sterilization 07/04/2024 Resolved Ambulatory Problems Diagnosis Date Noted No Resolved Ambulatory Problems Past Medical History: Diagnosis Date Arthritis Multiple evanescent white dot syndrome (mewds), bilateral Ovarian cyst HISTORY PAST MEDICAL HISTORY SOCIAL HISTORY Past Medical History: Diagnosis Date Arthritis Multiple evanescent white dot syndrome (mewds), bilateral Ovarian cyst Social History Tobacco Use Smoking status: Never Smokeless tobacco: Never Substance Use Topics Alcohol use: Not Currently Drug use: Never FAMILY HISTORY Family History Problem Relation Name Age of Onset Seizures Mother Kate Cr SURGICAL HISTORY Past Surgical History: Procedure Laterality Date SECTION, CLASSIC SECTION, LOW TRANSVERSE 01/19/2008 and 03/08/2010 TUBAL LIGATION Bilateral 08/02/2024 WISDOM TOOTH EXTRACTION REVIEW OF SYSTEMS Review of Systems: Review of Systems Constitutional: Negative. HENT: Negative. Eyes: Negative. Respiratory: Negative. Cardiovascular: Negative. Gastrointestinal: Negative. Genitourinary: Negative. Musculoskeletal: Negative. Skin: Negative. Neurological: Negative. All other systems reviewed and are negative. Hematological: Negative. Endocrine: Negative. Allergic/Immunologic: Negative. OBJECTIVE Objective: Physical Exam Constitutional: Appearance: Normal appearance. She is well-developed. Cardiovascular: Rate and Rhythm: Normal rate and regular rhythm. Pulmonary: Effort: Pulmonary effort is normal. Breath sounds: Normal breath sounds. Abdominal: General: Bowel sounds are normal. There is no distension. Palpations: Abdomen is soft. Tenderness: There is no abdominal tenderness. There is no guarding or rebound. Comments: Sutures intact incisions healing well Musculoskeletal: General: No swelling. Normal range of motion. Right lower leg: No edema. Left lower leg: No edema. Neurological: Mental Status: She is alert and oriented to person, place, and time. Skin: General: Skin is warm and dry. Psychiatric: Mood and Affect: Mood normal. Behavior: Behavior normal. Vitals and nursing note reviewed. Exam conducted with a server systems administrator present. Vitals: Estimated body mass index is 37.5 kg/m as calculated from the following: Height as of 06/13/24: 5'. Weight as of 07/04/24: 192 lb. BP: No LMP recorded. Patient has had an injection. ASSESSMENT & PLAN Patient presents today for 2 week post operative bilateral salpingectomy. Patient voiced that she had a reaction to the bandages and currently has band-aids. Sutures removed without difficulty Documented by Sagrario Wood LPN on behalf of: ZAID Felipe documented in this encounterNOGolden Valley [facility] Hospital History of Present illness Narrative 07-04-2024 Note Date & EzykUcaiFadccdei87-05-0836 History of Present illness Narrative* Gracy Back - 07/04/2024 11:30 AM EST Reason for Appointment: Patient ID: Lizbeth Hastings is a 34 y.o. female who presents for Pre-op Visit Patient presents today for Pre Op appointment. Patient is scheduled to undergo Da Jenna assisted Bilateral Laparoscopic Salpingectomy on 08/02/[address] Whelan at [facility]. MEDICATIONS Current Outpatient Medications Medication Instructions medroxyPROGESTERone (DEPO-PROVERA) 150 mg, Intramuscular, Every 3 months ALLERGIES Allergies Allergen Reactions Other Itching, Swelling and Unknown Steri Strips Grass Pollen(K-O-R-T-Swt Remigio) Itching, Rash and Swelling PROBLEMS Active Ambulatory Problems Diagnosis Date Noted No Active Ambulatory Problems Resolved Ambulatory Problems Diagnosis Date Noted No Resolved Ambulatory Problems Past Medical History: Diagnosis Date Arthritis Multiple evanescent white dot syndrome (mewds), bilateral Ovarian cyst HISTORY PAST MEDICAL HISTORY SOCIAL HISTORY Past Medical History: Diagnosis Date Arthritis Multiple evanescent white dot syndrome (mewds), bilateral Ovarian cyst Social History Tobacco Use Smoking status: Never Smokeless tobacco: Never Substance Use Topics Alcohol use: Not Currently Drug use: Never FAMILY HISTORY Family History Problem Relation Name Age of Onset Seizures Mother Kate Cr SURGICAL HISTORY Past Surgical History: Procedure Laterality Date SECTION, CLASSIC SECTION, LOW TRANSVERSE 01/19/2008 and 03/08/2010 WISDOM TOOTH EXTRACTION REVIEW OF SYSTEMS Review of Systems: Review of Systems Constitutional: Negative. HENT: Negative. Eyes: Negative. Respiratory: Negative. Cardiovascular: Negative. Gastrointestinal: Negative. Genitourinary: Negative. Musculoskeletal: Negative. Skin: Negative. Neurological: Negative. All other systems reviewed and are negative. Hematological: Negative. Endocrine: Negative. Allergic/Immunologic: Negative. OBJECTIVE Objective: Physical Exam Constitutional: Appearance: Normal appearance. She is well-developed. Cardiovascular: Rate and Rhythm: Normal rate and regular rhythm. Pulmonary: Effort: Pulmonary effort is normal. Breath sounds: Normal breath sounds. Abdominal: General: Bowel sounds are normal. There is no distension. Palpations: Abdomen is soft. Tenderness: There is no abdominal tenderness. There is no guarding or rebound. Musculoskeletal: General: No swelling. Normal range of motion. Right lower leg: No edema. Left lower leg: No edema. Neurological: Mental Status: She is alert and oriented to person, place, and time. Skin: General: Skin is warm and dry. Psychiatric: Mood and Affect: Mood normal. Behavior: Behavior normal. Vitals and nursing note reviewed. Exam conducted with a server systems administrator present. Vitals: Estimated body mass index is 37.3 kg/m as calculated from the following: Height as of 06/13/24: 5'. Weight as of 06/13/24: 191 lb. BP: No LMP recorded. Patient has had an injection. ASSESSMENT & PLAN ICD-10-CM 1. Pre-op examination Z01.818 2. Request for sterilization Z30.2 Pre Op: Patient is doing well but has desire for sterilization. I have discussed conservative management vs. surgical management with the patient in detail and patient desires surgical management at this time. Patient has voiced understanding that a Bilateral Salpingectomy is considered to be permanent and patient will undergo Da Jenna assisted Bilateral Laparoscopic Salpingectomy on 08/02/2024. Surgicalconsents were signed, mmc was reviewed, and patient is to proceed to [facility] OR. Answered patients questions in regards to procedure. Follow Up: Patient is to follow up between 1-2 weeks post op to assess proper healing and recovery from procedure. Documented by Sagrario Wood LPN on behalf of: Judah Whelan DO [facility] History of Present illness Narrative 06-13-2024 Note Date & AzbmPwvmZzrabulv22-29-1912 History of Present illness Narrative* Sagrario Wood LPN - 06/13/2024 3:20 PM EDT Reason for Appointment: Patient ID: Lizbeth Hastings is a 34 y.o. female who presents for Contraception Patient presents today for Consult appointment. MEDICATIONS Current Outpatient Medications Medication Instructions medroxyPROGESTERone (DEPO-PROVERA) 150 mg, Intramuscular, Every 3 months ALLERGIES Allergies Allergen Reactions Other Itching, Swelling and Unknown Steri Strips Grass Pollen(K-O-R-T-Swt Remigio) Itching, Rash and Swelling PROBLEMS Active Ambulatory Problems Diagnosis Date Noted No Active Ambulatory Problems Resolved Ambulatory Problems Diagnosis Date Noted No Resolved Ambulatory Problems Past Medical History: Diagnosis Date Arthritis Multiple evanescent white dot syndrome (mewds), bilateral Ovarian cyst HISTORY PAST MEDICAL HISTORY SOCIAL HISTORY Past Medical History: Diagnosis Date Arthritis Multiple evanescent white dot syndrome (mewds), bilateral Ovarian cyst Social History Tobacco Use Smoking status: Never Smokeless tobacco: Never Substance Use Topics Alcohol use: Not Currently Drug use: Never FAMILY HISTORY Family History Problem Relation Name Age of Onset Seizures Mother Kate Cr SURGICAL HISTORY Past Surgical History: Procedure Laterality Date SECTION, CLASSIC SECTION, LOW TRANSVERSE 01/19/2008 and 03/08/2010 WISDOM TOOTH EXTRACTION REVIEW OF SYSTEMS Review of Systems: Review of Systems All other systems reviewed and are negative. OBJECTIVE Objective: Physical Exam Constitutional: Appearance: Normal appearance. She is well-developed. Cardiovascular: Rate and Rhythm: Normal rate and regular rhythm. Pulmonary: Effort: Pulmonary effort is normal. Breath sounds: Normal breath sounds. Abdominal: General: Bowel sounds are normal. There is no distension. Palpations: Abdomen is soft. Tenderness: There is no abdominal tenderness. There is no guarding or rebound. Musculoskeletal: General: No swelling. Normal range of motion. Right lower leg: No edema. Left lower leg: No edema. Neurological: Mental Status: She is alert and oriented to person, place, and time. Skin: General: Skin is warm and dry. Psychiatric: Mood and Affect: Mood normal. Behavior: Behavior normal. Vitals and nursing note reviewed. Exam conducted with a server systems administrator present. Vitals: Estimated body mass index is 37.3 kg/m as calculated from the following: Height as of this encounter: 5'. Weight as of this encounter: 191 lb. BP: 118/84 No LMP recorded. Patient has had an injection. ASSESSMENT & PLAN Patient presents to office to discuss permanent sterilization. Patient desires to have surgical procedure for bilateral salpingectomy. Patient to schedule pre- op appointment and surgery date prior toleaving office today. Discussed all of patients options and patient desires to proceed with surgical management. Patient to return to clinic for per-op appointment. Documented by Sagrario Wood LPN on behalf of: Judah Whelan DO [facility] note Note Date & TypeNoteFacilityEvaluation note* Diagnosis Pre-op examination Request for sterilization documented in this encounter [facility] Evaluation note Note Date & TypeNoteFacilityEvaluation note* Diagnosis Sterilization consult Other general counseling and advice for contraceptive management documented in this encounter [facility] Evaluation note Note Date & TypeNoteFacilityEvaluation note* Diagnosis Postoperative state Other postprocedural status documented in this encounter [facility] Evaluation note Note Date & TypeNoteFacilityEvaluation note* Diagnosis Vaginal discharge Leukorrhea, not specified as infective STD exposure Pelvic pain in female Unspecified symptom associated with female genital organs documented in this encounter [facility] Summary Purpose Family History No Family History Records FoundNo Family History Records Found Advance Directives No Advanced Directives Records FoundNo Advanced Directives Records Found Additional Source Comments INFORMATION SOURCE (unrecogn ized section and content) DATE CREATED AUTHOR 10/09/2020 [facility] DATE CREATED AUTHOR 'S EM GLASS 03/18/2025 [facility] EPIC Care Teams (unrecognized sec tion and content) Team MemberRelationshipSpecialtyStart DateEnd Date Luis Dolan MD [address] [place] [facility] [place] [address] PCP - General01/12/23Team MemberRelationshipSpecialtyStart DateEnd Date Luis Dolan MD [address] [place] [facility] [place] [address] PCP - General/Team MemberRelationshipSpecialtyStart DateEnd Date Luis Dolan MD [address] [place] [facility] [place] [address] PCP - General01/12/23Team MemberRelationshipSpecialtyStart DateEnd Date Luis Dolan MD [address] [place] [facility] [place] [address] PCP - General01/12/23Team MemberRelationshipSpecialtyStart DateEnd Date Luis Dolan MD [address] [place] [facility] [place] [address] PCP - General01/12/23Team MemberRelationshipSpecialtyStart DateEnd Date Luis Dolan MD PCP - General5/Team MemberRelationshipSpecialtyStart DateEnd Date Luis Dolan MD PCP - General/Team MemberRelationshipSpecialtyStart DateEnd Date Luis Dolan MD PCP - General5//23 Reason for Visit (unrecogniz ed section and content) ReasonCommentsPre-op VisitReasonCommentsContraceptionReasonCommentsVaginal DischargeSTI Screening FOR RECORDS PERTAINING TO PATIENTS WHO ARE OR HAVE BEEN ENROLLED IN A CHEMICAL DEPENDENCY/SUBSTANCEABUSE PROGRAM, SOME INFORMATION MAY BE OMITTED. This clinical summary was aggregated from multiple sources. Caution should be exercised in using it in the provision of clinical care. This summary normalizes information from multiple sources, and as a consequence, information in this document may materially change the coding, format and clinical context of patient data. In addition, data may be omitted in some cases. CLINICAL DECISIONS SHOULD BE BASED ON THE PRIMARY CLINICAL RECORDS. [employer] [facility]. provides no warranty or guarantee of the accuracy or completeness of information in this document.
--- OUTSIDE RECORDS SUMMARY | 2025-07-07 07:43 | XMS_ITS | Clinical Summary ---
Author Organization [facility] Address [address] [place] [address] Care Team Providers Care Mortgage Processing Manager Name Role Phone Luis Dolan MD Primary Care Provider [phone] Allergies Active AllergyReactionsCriticalityNoted DateCommentsGrass Pollen(K-O-R-T-Swt Remigio)Itching,Rash,TqkmrjrjJgo42/31/2023OtherItching,Swelling,Ggllsvt4806/19/2023 Steri Strips Medications MedicationSigDispense QuantityRefillsLast FilledStart DateEnd [...] mg Indications:Encounter for management and injection of depo-Blpdbzg649 mgIMOnce 4Active Active Problems ProblemNoted DateDiagnosed DatePostoperative state08/15/2024re-op examination 4Request for xazbyuoiihcyb84/18/2024 Encounters DateTypeDepartmentCare WwucUxumtswvsqf40/12/2025Telephone [facility] [address] [facility] [place] [phone] Alesia Beth MA from Last 3 Months Family History Medical HistoryRelationNameCommentsSeizuresMotherKim TayoRelationNameStatus CommentsMotherKim Tayo Social History Tobacco UseTypesPacks/DayYears UsedDateSmoking Tobacco: NeverSmokeless Tobacco: Never Tobacco Cessation:Counseling Given: Not Answered Alcohol UseStandard Drinks/WeekCommentsNot Currently0 (1 standard drink = 0.6 oz pure alcohol)CommentsNoSex and Gender InformationValueDate RecordedSex Assigned at UqdboXbjzzf03/29/2023 12:33 PM EDTLegal MnaAxsotd53/15/2023 11:47 PM EDTGender QczibcxoFavbmr57/29/2023 12:33 PM EDTSexual OrientationNot on file Last Filed Vital Signs Vital SignReadingTime TakenCommentsBlood Bdydzher559/7207/04/2024 11:50 AM EST Pulse--Temperature--Respiratory Rate--Oxygen Saturation--Inhaled Oxygen Concentration--Bxdnsj91.1 kg (192 lb)07/04/2024 11:50 AM ZUDLriaqd740.4 cm (5') 06/13/2024 3:31 PM EDTBody Mass Index37. 3:31 PM EDT Plan of Treatment Not on file Insurance Care Teams Team MemberRelationshipSpecialtyStart DateEnd Date Luis Dolan MD [address] [place] [phone] PCP - General01/12/23
--- OUTSIDE RECORDS SUMMARY | 2025-07-07 07:43 | XMS_ITS | Patient Health Record ---
Author Organization [facility] in [place] Address [address] [place] [address] Care Team Providers Care Spanish Linguist Name Role Phone Mukesh Dolan Primary Care Provider Allergies No Known Allergies Results Component Value Reference Range Notes PREG QUANT HCG Reviewed date:08/02/2024 12:16:50 PM Interpretation: Performing Lab: Notes/Report: [facility] , HCG Quantitative <1 5-50 0.2-1 WEEK 50-500 1-2 WEEKS 100-5,000 2-3 WEEKS 500-10,000 3-4 WEEKS 1,000-50,000 4-5 WEEKS 10,000-100,000 5-6 WEEKS 15,000-200,000 6-8 WEEKS 10,000-100,000 2-3 MONTHS Performing Lab:see noteML - [facility] LBCBC AUTO DIFF Reviewed date:08/02/2024 12:16:50 PM Interpretation: Performing Lab: Notes/Report: [facility] ,White Blood Count6.54.0-11.0 10 3/uLRed Blood Count4.964.20-5.40 10 6/uL Eramocvjqt08.312.0-16.0 g/rTVxykwyljgi03.536.0-48.0 %Mean Corpuscular Tayvlo94.7 81.0-99.0 fLMean Corpuscular Oikrkdtnff29.826.7-34.0 pgMean Corpuscular HGB Conc 34.529.9-35.2 g/dLRed Cell Distribution Width11.911.0-15.0 %Platelet Jhoym917 150-450 10 3/uLMean Platelet Bwdcbz49.19.5-13.5 fLNeutrophils Percent Auto61.6 43.0-75.0 %Lymphocytes Percent Auto26.120.5-60.0 %Monocytes Percent Auto8.21.7- 12.0 %Eosinophils Percent Auto3.10.9-7.0 %Basophils Percent Auto0.50.2-2.0 % Immature Granulocytes Pct Auto0.50.0-0.5 %Neutrophils Absolute Auto4.01.4-6.5 10 3/uLLymphocytes Absolute Auto1.71.2-3.8 10 3/uLMonocytes Absolute Auto0.50.3-0.8 10 3/uLEosinophils Absolute Auto0.20.0-0.7 10 3/uLBasophils Absolute Auto0.00.0- 0.1 10 3/uLImmature Granulocytes Abs Auto0.030.00-0.03 10 3/uLPerforming Lab:see noteML - [facility] Reason For Referral No Information Medications Medication [...] alcohol in the p ast year? No Maervo7PlohzohtyvoumiBehuotjy Problems Problem Type SNOMED Code ICD Code Onset Dates Problem Status W/U Status Risk Notes Problem Onychomycosis (711094223) Onychomycosis ( B35.1) ActiveconfirmedProblemObesity (398227032)Obesity (E66.9)ActiveconfirmedProblem Well adult (470116962)Well adult (Z00.00)ActiveconfirmedProblemNear syncope (254082237)Near syncope (R55)Activeconfirmed Vital Signs Blood pressure diastolic 84 mm Hg 07/06/2025 Qlikrk68 in07/06/2025lood pressure mm Hg07/06/20256894Qmqlpx137.6 lbs 11/20/6979QNW20.42 kg/m207/06/2025 Encounters Encounter Location Date Provider Diagnosis [facility] [address] [place] [address] 07/06/2025 Mukesh Dolan Obesity E66.9 ; Well [...] Date Coverage End Date R [address] [address] [place] [address] [id number] Ritesh Hastings Spouse - patient is the spouse of the insured Medical (General) History Medical History History ICD Code Covid-19 OnychomycosesGastroenteritisSebaceous CystPelvic PainNear SyncopeHeadache Surgical History Surgery Date(Month/Year) laparoscopic ovarian cystotomy dr ramirez 08/02/24 [place] [facility] C Section X 2
--- OUTSIDE RECORDS SUMMARY | 2025-07-07 07:43 | XMS_ITS | Encounter Summary ---
Author Organization [facility] Address [address] [facility] [place] [address] Care Team Providers Care Tower Technician Name Role Phone Luis Dolan MD Primary Care Provider [phone] Encounter Details DateTypeDepartmentCare Team (Latest Contact Info)Vxrxugnewkk50/12/2025Telephone [facility] OBGYTequila [address] [place] [address] [place] [phone] Alesia Beth MA Social History Tobacco UseTypesPacks/DayYears UsedDateSmoking Tobacco: NeverSmokeless Tobacco: NeverAlcohol UseStandard Drinks/WeekCommentsNot Currently0 (1 standard drink = 0.6 oz pure alcohol)CommentsNoSex and Gender InformationValueDate RecordedSex Assigned at LodocVghnjg35/29/2023 12:33 PM EDTLegal SexFemale 10/29/2022 11:47 PM EDTGender WgqjsnkmPdjaer16/29/2023 12:33 PM EDTSexual OrientationNot on filedocumented as [...] DateEnd Date Luis Dolan MD [address] [place] [phone] PCP - [facility]01/12/23documented as of this encounter
[2025-07-07 08:05] LABS: Hematocrit 41.8 % (36.0-48.0); Hemoglobin 14.2 g/dL (12.0-16.0); Immature Granulocytes Abs Auto 0.02 10^3/uL (0.00-0.03); Immature Granulocytes Pct Auto 0.3 % (0.0-0.5); Lymphocytes Absolute Auto 1.5 10^3/uL (1.2-3.8); Mean Corpuscular HGB Conc 34.0 g/dL (29.9-35.2); Mean Corpuscular Hemoglobin 28.6 pg (26.7-34.0); Mean Corpuscular Volume 84.1 fL (81.0-99.0); Platelet Count 235 10^3/uL (150-450); Red Blood Count 4.97 10^6/uL (4.20-5.40); White Blood Count 6.4 10^3/uL (4.0-11.0)
[2025-07-07 09:01] LABS: Alanine Aminotransferase 36 U/L (14-59); Albumin Globulin Ratio 1.1; Albumin Level 3.8 g/dL (3.4-5.0); Alkaline Phosphatase 84 U/L (46-116); Anion Gap 10.1; Aspartate Amino Transferase 16 U/L (15-37); Blood Urea Nitrogen 12.0 mg/dL (7.0-18.0); Calcium 8.8 mg/dL (8.5-10.1); Carbon Dioxide 28.0 mmol/L (21.0-32.0); Chloride 103 mmol/L (98-107); Cholesterol 195 mg/dL (<=200); Estimated GFR (African America >60 (>=60 mL/min/1.73m^2); Estimated GFR (Non-African Ame >60 (>=60 mL/min/1.73m^2); Free T3 3.01 pg/mL (2.18-3.98); Globulin 3.6 g/dL; Glucose 96 mg/dL (74-106); HDL Cholesterol 59 mg/dL (40-60); Potassium 4.1 mmol/L (3.5-5.1); Sodium 137 mmol/L (136-145); Thyroid Stimulating Hormone 4.862 uIU/mL (0.358-3.740); Total Protein 7.4 g/dL (6.4-8.2); Triglycerides 62 mg/dL (<=150); VLDL CHOLESTEROL 12.4 mg/dL
[2025-07-07 09:20] LABS: Iron 86.0 ug/dL (50.0-170.0)
[2025-07-08 04:07] LABS: FSH 3.0 mIU/mL (.)
== END 2025-07-07 07:39 | disposition home or self-care (01) ==
LOC: LAB 07:38
PROVIDERS: PCP Family Medicine; Visit Provider Family Medicine
DX: Z00.00 Encounter for general adult medical examination without abnormal findings (principal); E66.9 Obesity, unspecified
CPT/HCPCS: 36415; 80053; 80061; 82670; 83001; 83002; 83036; 83525; 83540; 84144; 84146; 84403; 84436; 84443; 84481; 85025